=== PATIENT | female | born 1970 | race Caucasian/White ===

== ENCOUNTER 2017-10-03 06:34 | Day surgery (SDC) | payer BC ==
[~2017-10-03 06:34] MED LIST: Lactated Ringers 1,000 ML IV SCH
[2017-10-03] MEDS ORDERED: Midazolam 1 MG/ML 2 ML SDV ONE (07:10)
[2017-10-03] MEDS ORDERED: Lidocaine 2% 5 ML SDV ONE (07:10)
[2017-10-03] MEDS ORDERED: Propofol 200 MG/20 ML SDV ONE (07:10)
[2017-10-03] MEDS ORDERED: fentaNYL 100 MCG/2 ML SDV ONE (07:10)
--- NOTE | 2017-10-03 07:10 | PCM.PREANE ---
Preanesthetic Assessment - Anesthesia/Transfusion/Family Hx Anesthesia History: Prior Anesthesia Without Reaction Other Type of Anesthesia Reaction Comment: pt adopted Family History of Anesthesia Reaction: No Transfusion History: No Prior Transfusion(s) Intubation History: Unknown - Review of Systems General: No Symptoms Pulmonary: No Symptoms Cardiovascular: No Symptoms Gastrointestinal: No Symptoms Neurological: No Symptoms Other: Reports: None - Physical Assessment Height: 1.64 m Weight: 66.224 kg ASA Class: 2 Mental Status: Alert & Oriented x3 Airway Class: Mallampati = 2 Dentition: Reports: Normal Dentition (grinded edges on front teeth) Thyro-Mental Finger Breadths: 3 Mouth Opening Finger Breadths: 3 ROM/Head Extension: Full Lungs: Clear to Auscultation, Normal Respiratory Effort Cardiovascular: Regular Rate, Regular Rhythm - Allergies Allergies/Adverse Reactions: Allergies Allergy/AdvReac Type Severity Reaction Status Date / Time acetaminophen [From Percocet] Allergy tongue and Verified 09/29/17 10:36 throat swell oxycodone HCl [From Percocet] Allergy tongue and Verified 09/29/17 10:36 throat swell Sulfa (Sulfonamide Allergy Rash Verified 09/06/14 10:01 Antibiotics) - Blood Blood Available: No - Anesthesia Plan Pre-Op Medication Ordered: None - Acknowledgements Anesthesia Type Planned: MAC Pt an Appropriate Candidate for the Planned Anesthesia: Yes Alternatives and Risks of Anesthesia Discussed w Pt/Guardian: Yes Pt/Guardian Understands and Agrees with Anesthesia Plan: Yes PreAnesthesia Questionnaire HEENT History: Reports: Other (See Below) Other HEENT History: wears glasses/contacts Cardiovascular History: Reports: Hypertension Gastrointestinal History: Reports: Irritable Bowel Syndrome Genitourinary History: Reports: None 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: , 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 Musculoskeletal History: Reports: Fracture Other Musculoskeletal History: hx fx humerus Psychiatric History: Reports: Anxiety, Depression - Past Surgical History Head Surgeries/Procedures: Reports: None HEENT Surgical History: Reports: Tonsillectomy GI Surgical History: Reports: Appendectomy Female Surgical History: Reports: Breast Biopsy, Dilitation & Evacuation, Other (See Below) Other Female Surgeries/Procedures: laparoscopy for left ovarian cystectomy Oncologic Surgical History: Reports: Biopsy of Breast - SUBSTANCE USE Smoking Status *Q: Current Every Day Smoker (up to 1 ppd) Tobacco Use Within Last Twelve Months: Cigarettes Recreational Drug Use History: No - HOME MEDS Home Medications: Home Meds Cyanocobalamin (Vitamin B-12) [Vitamin B-12] 1,000 mcg PO DAILY 09/29/17 [ History] Folic Acid 1 mg PO DAILY 09/29/17 [History] Lisinopril 10 mg PO DAILY 09/29/17 [History] [place]-3/DHA/Epa/Fish Oil [Fish Oil EC 1,000 MG Softgel] 1,000 mg PO DAILY [History] Triamterene/Hydrochlorothiazid [Triamterene-HCTZ 37.5-25 MG] 1 tab PO DAILY [History] Vilazodone Hydrochloride [Viibryd] 40 mg PO DAILY 09/29/17 [History] - CURRENT (IN HOUSE) MEDS Current Meds: Current Medications Lactated Ringer's (Ringers, Lactated) 1,000 mls @ 125 mls/hr IV ASDIRECTED SKYLER
[2017-10-03] MEDS ORDERED: Lidocaine 1% with EPINEPHrine 1:100,000 20 ML MDV ONE (07:24)
--- NOTE | 2017-10-03 08:59 | PCM.OPNOTE ---
- General Post-Op/Procedure Note Date of Surgery/Procedure: 10/03/17 Operative Procedure(s): Loop electrode excisional procedure. Findings: acetowhite epithelium extending into the cervical canal. Pre Op Diagnosis: DANIEL I incomplete colposcopy Post-Op Diagnosis: Same Anesthesia Technique: General LMA Primary Surgeon: Lucia Ribeiro Anesthesia Provider: Adrian Moreno Pathology: ectocervical biopsy, labeled at 12 o'clock. Endocervical curettings. Fluid Replacement, Intraop: 800 EBL in mLs: 5 Complications: None Known Condition: Good
[2017-10-03] MEDS ORDERED: fentaNYL 100 MCG/2 ML SDV IVPUSH PRN (09:01)
--- NOTE | 2017-10-03 09:48 | OR ---
SURGEON: Lucia Ribeiro M.D. DATE OF PROCEDURE: 10/03/2017 PREOPERATIVE DIAGNOSIS: DANIEL 1 with incomplete colposcopy. POSTOPERATIVE DIAGNOSIS: DANIEL 1 with incomplete colposcopy. PROCEDURE: Loop electrode excisional procedure. ANESTHESIA: General LMA with cervical block. ESTIMATED BLOOD LOSS: Less than 5 mL. FLUIDS: 800 mL of crystalloid. FINDINGS: Acetowhite epithelium at the transition zone extending into the endocervical canal. COMPLICATIONS: None known. DISPOSITION: Stable to recovery. BRIEF HISTORY: This is a 47-year-old female. She had an ASCUS Pap with positive high-risk HPV, colposcopy in the clinic. Biopsies showed DANIEL 1. However, the lesion extended into the endocervical canal and therefore, I recommended a loop electrode excisional procedure for further evaluation and treatment. Risks discussed including bleeding, infection, anesthesia risk, and were she to become , cervical incompetence risk. Understanding all of these risks, she does desire to proceed. DESCRIPTION OF PROCEDURE: With the patient in dorsal lithotomy position, under adequate LMA analgesia, speculum was placed in the vagina. This was a LEEP speculum. The cervix was grasped with a single-tooth tenaculum and a total of 10 mL of 1% lidocaine with epinephrine were injected at the 12, 5, and 7 o'clock position. The cervix was treated with dilute acetic acid. Colposcopy was performed with findings as noted above. A LEEP loop with a setting of 60 pure-cut was utilized to excise the ectocervix. This was labeled at 12 o'clock with a suture and endocervical curettage was then performed using a sharp box curette followed by a Cytobrush to collect the tissue. The base of the LEEP site was then treated with a ball- tip cautery, a pure coag at a setting of 60 followed by Monsel's solution. The tenaculum was removed. The cervix was completely hemostatic. The speculum was removed from the vagina. Final sponge, needle, instrument counts were reported as correct. There were no known complications. Specimens are ectocervical biopsy labeled at 12 o'clock and endocervical specimen. Complications, none known. Disposition, stable to recovery. EMA / TEJAL /[id number]
== END 2017-10-03 10:00 | disposition home or self-care (01) ==
LOC: MW.SDS 06:34
PROVIDERS: ATTEND Obstetrics & Gynecology
DX: N87.0 Mild cervical dysplasia (principal); I10 Essential (primary) hypertension; F41.9 Anxiety disorder, unspecified; F32.9 Major depressive disorder, single episode, unspecified; F17.210 Nicotine dependence, cigarettes, uncomplicated; Z88.5 Allergy status to narcotic agent; Z88.2 Allergy status to sulfonamides; Z88.8 Allergy status to other drugs, medicaments and biological substances; Z79.899 Other long term (current) drug therapy; Z90.89 Acquired absence of other organs; Z90.49 Acquired absence of other specified parts of digestive tract; Z98.890 Other specified postprocedural states
CPT/HCPCS: 36415; 57522; 84703; 85027; J2250; J3010; J7120; 00940; 88305; 88307; J2704

== ENCOUNTER 2019-02-02 21:06 | Emergency (ER) | payer BC ==
[2019-02-02] MEDS ORDERED: Diphtheria,Pertussis(Acell),Tetanus Vaccine 0.5 ML Syringe IM ONE (21:27)
--- NOTE | 2019-02-02 21:27 | EDM.PDOC ---
ED HPI GENERAL MEDICAL PROBLEM - General Chief Complaint: Laceration Stated Complaint: PT HURT RT HAND Time Seen by Provider: 02/02/19 21:26 Source of Information: Reports: Patient - History of Present Illness INITIAL COMMENTS - FREE TEXT/NARRATIVE: HISTORY AND PHYSICAL: History of present illness: [Patient presents with lacerations on the palmar aspect of her right third and fourth digits, she was moving some cement blocks Netter fingers pinched between them 0 out of 10 pain tendon function intact pre-and post suture entire limb neurovascularly intact macerated tissue in the interdigital phalanx of each finger ] Review of systems: As per history of present illness and below otherwise all systems reviewed and negative. Past medical history: As per history of present illness and as reviewed below otherwise noncontributory. Surgical history: As per history of present illness and as reviewed below otherwise noncontributory. Social history: No reported history of drug or alcohol abuse. Family history: As per history of present illness and as reviewed below otherwise noncontributory. Physical exam: HEENT: Atraumatic, normocephalic, pupils reactive, negative for conjunctival pallor or scleral icterus, mucous membranes moist, throat clear, neck supple, nontender, trachea midline. Lungs: Clear to auscultation, breath sounds equal bilaterally, chest nontender. Heart: S1S2, regular, negative for clicks, rubs, or JVD. Abdomen: Soft, nondistended, nontender. Negative for masses or hepatosplenomegaly. Negative for costovertebral tenderness. Pelvis: Stable nontender. Genitourinary: Deferred. Rectal: Deferred. Extremities: Atraumatic, negative for cords or calf pain. Neurovascular unremarkable. Neuro: Awake, alert, oriented. Cranial nerves II through XII unremarkable. Cerebellum unremarkable. Motor and sensory unremarkable throughout. Exam nonfocal. Diagnostics: [Right hand 3 views ] Therapeutics: [Status is updated ] Keflex 500 by mouth twice a day #20 no refill standard wound care instructions Keep wounds clean and dry Wounds cleansed and explored #240 sutures interrupted on each wound sutures out in 10 days Impression: [ laceration, simple, 3.5 cm ] Definitive disposition and diagnosis as appropriate pending reevaluation and review of above. right hand (lacerated areas) Pain Score (Numeric/FACES): 2 - Related Data Allergies Allergy/AdvReac Type Severity Reaction Status Date / Time acetaminophen [From Percocet] Allergy tongue and Verified 09/29/17 10:36 throat swell oxycodone Allergy Swelling Verified 02/02/19 21:40 oxycodone HCl [From Percocet] Allergy tongue and Verified 09/29/17 10:36 throat swell Sulfa (Sulfonamide Allergy Rash Verified 09/06/14 10:01 Antibiotics) Home Meds: Home Meds Lisinopril 10 mg PO DAILY 09/29/17 [History] Triamterene/Hydrochlorothiazid [Triamterene-HCTZ 37.5-25 MG] 0 tab PO DAILY [History] Vilazodone Hydrochloride [Viibryd] 40 mg PO DAILY 09/29/17 [History] Past Medical History HEENT History: Reports: Other (See Below) Other HEENT History: wears glasses/contacts Cardiovascular History: Reports: Hypertension Gastrointestinal History: Reports: Irritable Bowel Syndrome Genitourinary History: Reports: None 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: , 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 Musculoskeletal History: Reports: Fracture Other Musculoskeletal History: hx fx humerus Psychiatric History: Reports: Anxiety, Depression - Past Surgical History Head Surgeries/Procedures: Reports: None HEENT Surgical History: Reports: Tonsillectomy GI Surgical History: Reports: Appendectomy Female Surgical History: Reports: Breast Biopsy, Dilitation & Evacuation, Other (See Below) Other Female Surgeries/Procedures: laparoscopy for left ovarian cystectomy Oncologic Surgical History: Reports: Biopsy of Breast ED ROS GENERAL - Review of Systems Review Of Systems: See Below ED EXAM, SKIN/RASH Exam: See Below Course - Vital Signs Last Recorded V/S: Last Vital Signs Temp 97 F 02/02/19 21:15 Pulse 100 02/02/19 21:15 Resp 18 02/02/19 21:15 BP 153/103 H 02/02/19 21:15 Pulse Ox 97 02/02/19 21:15 - Orders/Labs/Meds Orders: Active Orders 24 hr Category Date Time Status Vaccines to be Administered [RC] PER UNIT ROUTINE Care 02/02/19 21:27 Active Hand Comp Min 3V Rt [CR] Stat Exams 02/02/19 21:26 Taken Meds: Medications Discontinued Medications Generic Name Dose Route Start Last Admin Trade Name Freq PRN Reason Stop Dose Admin Bacitracin 1 dose 02/02/19 22:19 Bacitracin Oint 1 Gm TOP 02/02/19 22:20 ONETIME ONE Diphtheria/Tetanus/Acell Pertussis 0.5 ml 02/02/19 21:27 02/02/19 21:37 Adacel IM 02/02/19 21:28 0.5 ml .ONCE ONE Administration Lidocaine HCl Confirm 02/02/19 22:13 Xylocaine-Mpf 1% Administered 02/02/19 22:14 Dose 5 mls @ as directed .ROUTE .STK-MED ONE Lidocaine HCl 5 ml 02/02/19 22:12 Xylocaine 1% INJECT 02/02/19 22:13 ONETIME ONE Departure - Departure Time of Disposition: 22:34 Disposition: Home, Self-Care 01 Condition: Good Clinical Impression: Laceration - Discharge Information Referrals: Paige Baires NP [Primary Care Provider] - Forms: ED Department Discharge Additional Instructions: Standard wound care instructions Keep wounds clean and dry for 48 hours Return if symptoms persist or worsen Medication as prescribed Suture out in 10 days The following information is given to patients seen in the emergency department who are being discharged to home. This information is to outline your options for follow-up care. We provide all patients seen in our emergency department with a follow-up referral. The need for follow-up, as well as the timing and circumstances, are variable depending upon the specifics of your emergency department visit. If you don't have a primary care physician on staff, we will provide you with a referral. We always advise you to contact your personal physician following an emergency department visit to inform them of the circumstance of the visit and for follow-up with them and/or the need for any referrals to a consulting specialist. The emergency department will also refer you to a specialist when appropriate. This referral assures that you have the opportunity for follow-up care with a specialist. All of these measure are taken in an effort to provide you with optimal care, which includes your follow-up. Under all circumstances we always encourage you to contact your private physician who remains a resource for coordinating your care. When calling for follow-up care, please make the office aware that this follow-up is from your recent emergency room visit. If for any reason you are refused follow-up, please contact the [facility] emergency department at and asked to speak to the emergency department charge nurse. - My Orders Last 24 Hours: My Active Orders 02/02/19 21:26 Hand Comp Min 3V Rt [CR] Stat 02/02/19 21:27 Vaccines to be Administered [RC] PER UNIT ROUTINE - Assessment/Plan Last 24 Hours: My Active Orders 02/02/19 21:26 Hand Comp Min 3V Rt [CR] Stat 02/02/19 21:27 Vaccines to be Administered [RC] PER UNIT ROUTINE
[2019-02-02] MEDS ORDERED: Lidocaine 1% 10 ML MDV INJECT ONE (22:12)
[2019-02-02] MEDS ORDERED: Bacitracin Oint 1 GM U/D Packet TOP ONE (22:19)
--- NOTE | 2019-02-02 22:49 | CR ---
INDICATION: crush injury to 3rd and 4th digits TECHNIQUE: Right hand 3 views. COMPARISON: None. FINDINGS: Bones: Alignment is normal. No fractures or bone lesions. Joint spaces: Unremarkable. Soft tissues: Unremarkable. IMPRESSION: Unremarkable right hand. Dictated by: Johnnie Patterson MD @ 02/02/2019 22:48:16 (Electronically Signed)
== END 2019-02-02 22:44 | disposition home or self-care (01) ==
LOC: MW.ED 21:06
DX: S61.212A Laceration without foreign body of right middle finger without damage to nail, initial encounter (principal); S61.214A Laceration without foreign body of right ring finger without damage to nail, initial encounter; Z23 Encounter for immunization; I10 Essential (primary) hypertension; F32.9 Major depressive disorder, single episode, unspecified; F41.9 Anxiety disorder, unspecified; Z88.6 Allergy status to analgesic agent; Z88.2 Allergy status to sulfonamides; Z79.899 Other long term (current) drug therapy; W23.1XXA Caught, crushed, jammed, or pinched between stationary objects, initial encounter; Y99.0 Civilian activity done for income or pay
CPT/HCPCS: 73130-26-RT; 73130-RT; 90471; 90715; 99283-25

== ENCOUNTER 2019-11-16 07:42 | Day surgery (SDC) | payer BC ==
[2019-11-16] MEDS ORDERED: Propofol 200 MG/20 ML SDV ONE (07:43)
[2019-11-16] MEDS ORDERED: Ondansetron 4 MG/2 ML SDV ONE (07:43)
[2019-11-16] MEDS ORDERED: Midazolam 1 MG/ML 2 ML SDV ONE (07:43)
[2019-11-16] MEDS ORDERED: Ferric Subsulfate Topical Soln 8 GM (8 ML) Bottle TOP ONE (07:43)
[2019-11-16] MEDS ORDERED: fentaNYL 100 MCG/2 ML SDV ONE ×2 (07:43→09:06)
[2019-11-16] MEDS ORDERED: Lidocaine 2% 5 ML SDV ONE (07:43)
--- NOTE | 2019-11-16 08:18 | PCM.PREANE ---
Preanesthetic Assessment - Anesthesia/Transfusion/Family Hx Anesthesia History: Prior Anesthesia Without Reaction Other Type of Anesthesia Reaction Comment: pt adopted, unsure of family hx Family History of Anesthesia Reaction: No Transfusion History: No Prior Transfusion(s) Intubation History: Unknown - Review of Systems General: No Symptoms Pulmonary: No Symptoms Cardiovascular: No Symptoms Gastrointestinal: No Symptoms Neurological: No Symptoms Other: Reports: None - Physical Assessment NPO Status Date: 11/16/19 NPO Status Time: 07:30 Vital Signs: Last Vital Signs Temp 97.7 F 11/16/19 07:50 Pulse 96 11/16/19 07:50 Resp 20 11/16/19 07:50 BP 170/102 H 11/16/19 07:50 Pulse Ox 96 11/16/19 07:50 Height: 5 ft 4 in Weight: 65.771 kg ASA Class: 2 Mental Status: Alert & Oriented x3 Airway Class: Mallampati = 2 Dentition: Reports: Normal Dentition, Bridge ROM/Head Extension: Full Lungs: Clear to Auscultation, Normal Respiratory Effort Cardiovascular: Regular Rate, Regular Rhythm - Allergies Allergies/Adverse Reactions: Allergies Allergy/AdvReac Type Severity Reaction Status Date / Time acetaminophen [From Percocet] Allergy tongue and Verified 11/13/19 09:03 throat swell oxycodone Allergy Swelling Verified 11/13/19 09:03 oxycodone HCl [From Percocet] Allergy tongue and Verified 11/13/19 09:03 throat swell Sulfa (Sulfonamide Allergy Rash Verified 11/13/19 09:03 Antibiotics) - Blood Blood Available: No - Anesthesia Plan Pre-Op Medication Ordered: None - Acknowledgements Anesthesia Type Planned: General Anesthesia Pt an Appropriate Candidate for the Planned Anesthesia: Yes Alternatives and Risks of Anesthesia Discussed w Pt/Guardian: Yes Pt/Guardian Understands and Agrees with Anesthesia Plan: Yes Additional Comments: PMH: ibs, htn, smoker PLAN: ga/lma PreAnesthesia Questionnaire HEENT History: Reports: Other (See Below) Other HEENT History: wears glasses/contacts Cardiovascular History: Reports: Hypertension Respiratory History: Reports: None Gastrointestinal History: Reports: Irritable Bowel Syndrome Genitourinary History: Reports: None 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: , 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 Musculoskeletal History: Reports: Fracture Other Musculoskeletal History: hx fx humerus Neurological History: Reports: None Psychiatric History: Reports: Anxiety, Depression Hematologic History: Reports: None Immunologic History: Reports: None Oncologic (Cancer) History: Reports: None Dermatologic History: Reports: None - Infectious Disease History Infectious Disease History: Reports: Chicken Pox - Past Surgical History Head Surgeries/Procedures: Reports: None HEENT Surgical History: Reports: Tonsillectomy Cardiovascular Surgical History: Reports: None Respiratory Surgical History: Reports: None GI Surgical History: Reports: Appendectomy Female Surgical History: Reports: Breast Biopsy, D&C, LEEP, Other (See Below) Other Female Surgeries/Procedures: laparoscopy for left ovarian cystectomy Endocrine Surgical History: Reports: None Neurological Surgical History: Reports: None Musculoskeletal Surgical History: Reports: None Oncologic Surgical History: Reports: Biopsy of Breast Dermatological Surgical History: Reports: None - SUBSTANCE USE Smoking Status *Q: Current Every Day Smoker Tobacco Use Within Last Twelve Months: Cigarettes - HOME MEDS Home Medications: Home Meds Lisinopril 10 mg PO DAILY 09/29/17 [History] Triamterene/Hydrochlorothiazid [Triamterene-HCTZ 37.5-25 MG] 1 tab PO DAILY [History] Vilazodone Hydrochloride [Viibryd] 40 mg PO DAILY 09/29/17 [History] Cyanocobalamin (Vitamin B-12) [Vitamin B12] 5,000 mcg PO DAILY 11/13/19 [History ] Fish Oil/[place]-3 Fatty Acids [Fish Oil 1,000 MG] 1 tab PO DAILY 11/13/19 [ History] Folic Acid 2 tab PO DAILY 11/13/19 [History] buPROPion HCl [Wellbutrin Xl] 300 mg PO DAILY 11/13/19 [History] - CURRENT (IN HOUSE) MEDS Current Meds: Current Medications Lactated Ringer's (Ringers, Lactated) 1,000 mls @ 100 mls/hr IV ASDIRECTED SKYLER Last Admin: 11/16/19 08:10 Dose: 100 mls/hr Discontinued Medications Fentanyl (Sublimaze) Confirm Administered Dose 100 mcg .ROUTE .STK-MED ONE Stop: 11/16/19 07:44 Ferric Subsulfate (Astringyn) 8 gm TOP .STK-MED ONE Stop: 11/16/19 07:44 Lidocaine (Xylocaine-Mpf 2%) Confirm Administered Dose 5 ml .ROUTE .STK-MED ONE Stop: 11/16/19 07:44 Midazolam HCl (Versed 1 Mg/Ml) Confirm Administered Dose 2 mg .ROUTE .STK-MED ONE Stop: 11/16/19 07:44 Ondansetron HCl (Zofran) Confirm Administered Dose 4 mg .ROUTE .STK-MED ONE Stop: 11/16/19 07:44 Propofol (Diprivan 20 Ml) Confirm Administered Dose 200 mg .ROUTE .STK-MED ONE Stop: 11/16/19 07:44
[2019-11-16] MEDS ORDERED: Ketorolac 30 MG/ML SDV ONE (09:05)
[2019-11-16] MEDS ORDERED: HYDROmorphone 2 MG/ML Syringe ONE (09:35)
[2019-11-16] MEDS ORDERED: EPINEPHrine 1:10,000 1 MG/10 ML Syringe IVPUSH PRN (10:02)
[2019-11-16] MEDS ORDERED: Atropine 0.1 MG/ML 10 ML Syringe IVPUSH PRN ×2 (10:02)
[2019-11-16] MEDS ORDERED: Albuterol 0.083% 2.5 MG/3 ML Neb Soln NEB PRN (10:02)
[2019-11-16] MEDS ORDERED: 50% Dextrose in Water 50 ML Syringe IVPUSH PRN (10:02)
[2019-11-16] MEDS ORDERED: Naloxone 0.4 MG/ML Syringe IVPUSH PRN (10:02)
[2019-11-16] MEDS ORDERED: fentaNYL 100 MCG/2 ML SDV IVPUSH PRN (10:02)
--- NOTE | 2019-11-16 10:20 | PCM.OPNOTE ---
- General Post-Op/Procedure Note Date of Surgery/Procedure: 11/16/19 Operative Procedure(s): vulvar colposcopy with multiple biopsies partial vulvectomy (wide local excision) Findings: Lesion on the right ovary labia minora, dense acetowhite, prior biopsy site noted. lesion 1 cm in diameter, area of excision 3x2 cm. AWE medial labia minora bilaterally, biopsies obtained. Noted folliculitis left perineum Pre Op Diagnosis: SHELLIE III Post-Op Diagnosis: Same Anesthesia Technique: General LMA Primary Surgeon: Lucia Ribeiro Anesthesia Provider: Alli Mendez Neck Band Operator: Loretta Fowler Pathology: wide local excision right labia minor 12 o'clock marked; punch biopsy of right labia minora, lateral and medial punch biopsy left labia minora. Fluid Replacement, Intraop: 1,000 EBL in mLs: 5 Complications: None Known Condition: Good Free Text/Narrative:: Intake & Output 11/15/19 11/16/19 11/16/19 22:59 06:59 14:59 Intake Total 1100 Balance 1100
--- NOTE | 2019-11-16 10:40 | PCM.POSTAN ---
POST ANESTHESIA ASSESSMENT - MENTAL STATUS Mental Status: Alert, Oriented - VITAL SIGNS Vital Signs: Last Vital Signs Temp 36.3 C 11/16/19 10:20 Pulse 94 11/16/19 10:20 Resp 14 11/16/19 10:20 BP 133/77 11/16/19 10:20 Pulse Ox 91 L 11/16/19 10:20 - RESPIRATORY Respiratory Status: Respiratory Rate WNL, Airway Patent, O2 Saturation Stable - CARDIOVASCULAR CV Status: Pulse Rate WNL, Blood Pressure Stable - GASTROINTESTINAL GI Status: No Symptoms - PAIN Pain Score: 4 - POST OP HYDRATION Hydration Status: Adequate & Stable - OBSERVATIONS Free Text/Narrative:: The patient tolerated the procedure. There were no apparent anesthetic complications at this time. Discharge per criteria.
--- NOTE | 2019-11-16 12:02 | PCM48HPAN ---
Post Anesthesia Note - EVALUATION WITHIN 48HRS OF ANESTHETIC Vital Signs in Normal Range: Yes Patient Participated in Evaluation: Yes Respiratory Function Stable: Yes Airway Patent: Yes Cardiovascular Function Stable: Yes Hydration Status Stable: Yes Pain Control Satisfactory: Yes Nausea and Vomiting Control Satisfactory: Yes Mental Status Recovered: Yes Vital Signs: Last Vital Signs Temp 97.3 F 11/16/19 10:20 Pulse 92 11/16/19 10:39 Resp 16 11/16/19 10:39 BP 124/78 11/16/19 10:39 Pulse Ox 93 L 11/16/19 10:39
--- NOTE | 2019-11-16 16:06 | OR ---
SURGEON: Lucia Ribeiro M.D. DATE OF PROCEDURE: 11/16/2019 PREOPERATIVE DIAGNOSIS: Vulvar intraepithelial neoplasia 3. POSTOPERATIVE DIAGNOSIS: Vulvar intraepithelial neoplasia 3. PROCEDURE: Vulvar colposcopy with wide local excision (partial vulvectomy) and multiple vulvar biopsies. PRIMARY SURGEON: Lucia Ribeiro MD. ANESTHESIA: LMA. ESTIMATED BLOOD LOSS: Less than 10 mL. FINDINGS: After acetic acid 5% had been placed for 5 minutes, the vulva was inspected with and without colposcopy. The lesion on the right labia, which had been visualized at the time of her annual examination, was now coalesced into an approximately 8 mm to 1 cm lesion with some acetowhite epithelium extending onto the perineum and the posterior fourchette. The medial aspects of bilateral labia minora were acetowhite up to the vaginal mucosa. Biopsies were taken at the medial right labia minora, the medial left labia minora, lateral and medial. SPECIMENS: Vulvar biopsy, right labia minora; vulvar biopsy, left labia minora; vulvar biopsy, left medial labia minora; vulvar biopsy, right excisional biopsy, measuring approximately 3 x 4 cm when stretched. COMPLICATIONS: None known. DISPOSITION: Stable to Recovery. BRIEF HISTORY: This is a 49-year-old female. She is a known smoker. She has a history of cervical dysplasia. At the time of her annual examination, she was found to have a white lesion on the lower aspect of the right labia minora. This lesion was then biopsied and came back as SHELLIE 3. I have recommended wide local excision as well as careful vulvar colposcopy to identify further lesions. Risks were discussed including bleeding, infection, pain, and dyspareunia. Understanding these risks, she does desire to proceed. DESCRIPTION OF PROCEDURE: With the patient in dorsal lithotomy position, under adequate LMA analgesia, the perineum and vagina were first treated with dilute acetic acid for a 5-minute time-period. Vulvar colposcopy was then performed with findings as noted above. Picture documentation was obtained of the medial right and left labia minora. With a 1 cm margin circumferentially around the lesion of the right labia minora, marked with marking pen as well as the acetowhite epithelium identified with a marking pen for the medial labia minora. The perineum was then prepped with Betadine and draped in usual fashion for vaginal surgery. Following the previously made markings with a 15 blade scalpel, the skin was incised and then undermined using iris scissors. This skin was then labeled at the 12 o'clock position. A double-layer closure was performed utilizing 4-0 Monocryl for the deep subcutaneous tissue and a running subcuticular suture of the Monocryl for the skin. Punch biopsies were then obtained as noted above. Using a 3 mm punch biopsy, the tissue was then elevated and undermined with iris scissors and then sent for pathology. The base was cauterized with silver nitrate. The vulva was then inspected and was hemostatic. Final sponge, needle, and instrument counts were reported as correct. There were no known complications. The patient was transferred to Recovery in good condition. EMA TOURE /[id number]
== END 2019-11-16 11:00 | disposition home or self-care (01) ==
LOC: MW.SDS 07:42
PROVIDERS: ATTEND Obstetrics & Gynecology
DX: R87.623 High grade squamous intraepithelial lesion on cytologic smear of vagina (HGSIL) (principal); N76.2 Acute vulvitis; I10 Essential (primary) hypertension; F32.9 Major depressive disorder, single episode, unspecified; F17.210 Nicotine dependence, cigarettes, uncomplicated; Z88.6 Allergy status to analgesic agent; Z88.5 Allergy status to narcotic agent; Z88.2 Allergy status to sulfonamides; Z79.899 Other long term (current) drug therapy
CPT/HCPCS: 56620; 56821; 81025; J1170; J2001; J2250; J2405; J2704; J3010; J7120; 00906; 88305; J1885

== ENCOUNTER 2021-07-27 21:43 | Emergency (ER) | payer BC | END 2021-07-27 22:31 | disposition left against medical advice (07) | LOC: MW.ED 21:43 | DX: Z53.21 Procedure and treatment not carried out due to patient leaving prior to being seen by health care provider (principal) ==

== ENCOUNTER 2024-03-24 16:37 | Emergency (ER) | payer BC ==
[2024-03-24 17:03] LABS: BASOPHILS ABSOLUTE AUTO 0.05 K/uL (0.00-0.20); BASOPHILS PERCENT AUTO 0.9 % (0.0-1.0); EOSINOPHILS ABSOLUTE AUTO 0.05 K/uL (0.00-0.45); EOSINOPHILS PERCENT AUTO 0.9 % (0.0-6.0); HEMATOCRIT 37.9 % (37.0-47.0); HEMOGLOBIN 14.1 g/dL (12.0-16.0); IMMATURE GRAN ABSOLUTE AUTO 0.01 K/uL (0.00-0.05); IMMATURE GRAN PERCENT AUTO 0.2 % (0.0-0.4); LYMPHOCYTES ABSOLUTE AUTO 1.72 K/uL (1.00-4.80); LYMPHOCYTES PERCENT AUTO 31.9 % (24.0-44.0); MEAN CORPUSCULAR HEMOGLOBIN 33.4 pg (28.0-32.0); MEAN CORPUSCULAR HGB CONC 37.2 g/dL (32.0-36.0); MEAN CORPUSCULAR VOLUME 89.8 fL (83.0-99.0); MONOCYTES ABSOLUTE AUTO 0.31 K/uL (0.00-0.80); MONOCYTES PERCENT AUTO 5.8 % (0.0-8.0); NEUTROPHILS ABSOLUTE AUTO 3.25 K/uL (1.80-7.70); NEUTROPHILS PERCENT AUTO 60.3 % (41.0-71.0); PLATELET COUNT,PLT 365 K/uL (150-400); RED BLOOD CELL COUNT 4.22 M/uL (4.10-5.30); WHITE BLOOD CELL COUNT,WBC 5.39 K/uL (3.9-11.3)
[2024-03-24] MEDS: Acetaminophen 500 MG Tab PO ONE (17:23)
[2024-03-24 17:25] LABS: A/G RATIO 0.9 (0.9-1.6); ACETAMINOPHEN <2.0 ug/mL; ALANINE AMINOTRANSFERASE,ALT 23 IU/L (14-63); ALBUMIN 3.9 g/dL (3.4-5.0); ALKALINE PHOSPHATASE 90 U/L (46-116); ASPARTATE AMNIOTRANSFERASE,AST 19 IU/L (15-37); BILIRUBIN TOTAL 0.3 mg/dL (0.2-1.0); BLOOD UREA NITROGEN,BUN 3 mg/dL (7.0-18.0); CALCIUM 8.7 mg/dL (8.5-10.1); CHLORIDE,CL 85 mmol/L (98-107); CREATININE 0.7 mg/dL (0.6-1.0); EST CRCL DRUG DOSING (CG) 79.34 mL/min; ESTIMATED GFR 103 mL/min (>60); ETHANOL BLOOD MEDICAL 217 mg/dL; GLUCOSE RANDOM 98 mg/dL (74-106); POTASSIUM,K 3.2 mmol/L (3.5-5.1); PROTEIN TOTAL,TP 8.4 g/dL (6.4-8.2); SALICYLATE 2.3 mg/dL (0.0-20.0); SODIUM,NA 125 mmol/L (136-145)
[2024-03-24 18:00] LABS: AMPHETAMINES SCREEN, URINE NEGATIVE (CUTOFF=500); BARBITURATE SCREEN,URINE NEGATIVE (CUTOFF=200); BENZODIAZEPINES SCREEN,URINE PRESUMPTIVE POSITIVE (CUTOFF=150); BUPRENORPHINE SCREEN,URINE NEGATIVE (CUTOFF=10); METHADONE SCREEN, URINE NEGATIVE (CUTOFF=200); METHAMPHETAMINES SCREEN, URINE NEGATIVE (CUTOFF=500); OXYCODONE SCREEN,URINE NEGATIVE (CUT0FF=100); PCP SCREEN,URINE NEGATIVE (CUTOFF=25); THC SCREEN,URINE 20 NG/ML NEGATIVE (CUTOFF=50)
[2024-03-24 19:10] LABS: CALCIUM 8.7 mg/dL (8.5-10.1); CARBON DIOXIDE,CO2 27.1 mmol/L (21.0-32.0); CREATININE 0.6 mg/dL (0.6-1.0); EST CRCL DRUG DOSING (CG) 92.56 mL/min; POTASSIUM,K 3.2 mmol/L (3.5-5.1)
[2024-03-24] MEDS: Sodium Chloride 0.9% 1,000 ML IV ONE (20:00)
== END 2024-03-24 21:00 ==
LOC: MW.ED 16:37
DX: S60.812A Abrasion of left wrist, initial encounter (principal); S60.811A Abrasion of right wrist, initial encounter; F32.A Depression, unspecified; E87.1 Hypo-osmolality and hyponatremia; I10 Essential (primary) hypertension; Z88.5 Allergy status to narcotic agent; Z88.2 Allergy status to sulfonamides; Z79.899 Other long term (current) drug therapy; X78.9XXA Intentional self-harm by unspecified sharp object, initial encounter
CPT/HCPCS: 36415; 80048; 80053; 80143; 80179; 80305; 80307; 81025; 85025; 87635; 96360; 99285; A9270; J7030; U0002